=== PATIENT | male | born 1995 | race Caucasian/White ===

== ENCOUNTER 2016-06-17 20:00 | Emergency (ER) | payer OTHER ==
[~2016-06-17] VITALS: Ht 170.2 cm; Wt 70.0 kg
[2016-06-17 20:03] VITALS: TEMP 36.7; Ht 170.2 cm; Wt 70.0 kg
--- NOTE | 2016-06-17 20:42 | DIAGNOSTIC IMAGING REPORT ---
RIGHT TIBIA/FIBULA 2 VIEWS ROUTINE CLINICAL HISTORY: Right roach pain following injury. COMPARISON: None FINDINGS: No definite fracture of the right tibia or fibula is present. There is a vertical lucency through the proximal to mid shaft of the right tibia. This likely reflects a vascular channel. Lateral view demonstrates mild soft tissue swelling overlying the proximal to mid shaft of the right tibia. IMPRESSION: Vertical lucency within the proximal to mid shaft of the right tibia. This favors a vascular channel. A nondisplaced fracture could appear similar although is considered less likely. A CT scan or short-term radiographic follow-up could be performed if persistent pain. Electronically signed by: Major Lan M.D. 06/17/2016 8:40 PM Dictated Date/Time: 06/17/2016 8:35 PM
--- NOTE | 2016-06-17 21:16 | EMERGENCY ROOM VISIT NOTE ---
ED Visit Note First contact with patient: 20:09 CHIEF COMPLAINT: Leg pain HISTORY OF PRESENT ILLNESS: This 21-year-old male patient presents to the emergency department ambulatory after sustaining an injury to the right roach. The patient reports that he was playing soccer when he was kicked by a cleat directly in the roach. He states that there is an area of swelling where he was kicked. He is having difficulty walking due to the pain. He denies any other injuries. He states the leg feels slightly weak but denies any numbness. He rates his discomfort a 5/10. He has not taken any medication for the pain. No previous injuries to this leg. REVIEW OF SYSTEMS: A 6 system review of systems was completed with positives and pertinent negatives listed in the HPI. ALLERGIES: Penicillins MEDICATIONS: No chronic medications PMH: No significant past history. SOCIAL HISTORY: The patient is a [employer] student and lives with roommates. Nonsmoker, admits to occasional alcohol use. PHYSICAL EXAM: Vital Signs: Reviewed Nurse's notes, vital signs stable. GENERAL : This is a 21-year-old male, no acute distress, but appears in pain, well- developed, well-nourished. MENTAL STATUS: Alert, oriented to person place and time, and cooperative. MUSCULOSKELETAL: There is a hematoma over the distal one third of the right anterior roach. There is tenderness to palpation. No lacerations or abrasions. No tenderness to palpation of the proximal tibia/ fibula or ankle. Full range of motion of the knee and ankle. The foot and toes are warm and well-perfused. Dorsalis pedis pulse 2+. Sensation to pain and light touch is intact. Capillary refill less than 2 seconds. RADIOGRAPHIC FINDINGS: RIGHT TIBIA/FIBULA 2 VIEWS ROUTINE CLINICAL HISTORY: Right roach pain following injury. COMPARISON: None FINDINGS: No definite fracture of the right tibia or fibula is present. There is a vertical lucency through the proximal to mid shaft of the right tibia. This likely reflects a vascular channel. Lateral view demonstrates mild soft tissue swelling overlying the proximal to mid shaft of the right tibia. IMPRESSION: Vertical lucency within the proximal to mid shaft of the right tibia. This favors a vascular channel. A nondisplaced fracture could appear similar although is considered less likely. A CT scan or short-term radiographic follow-up could be performed if persistent pain. EMERGENCY DEPARTMENT COURSE: I examined the patient. X-rays of the right tib/ fib were reviewed by myself and read by radiology and reveal an abnormality of the proximal tibia which likely represents a vascular channel. The patient was reassessed and has no tenderness over the area in question, confirming that this is likely a vascular channel. The patient has a hematoma. He was reassured. Conservative measures were discussed. He was able to walk and will not require crutches. He will follow-up with [facility] services as needed. The patient was discharged home in good condition. DIAGNOSIS: Right leg hematoma Current/Historical Medications No Active Prescriptions or Reported Meds Allergies Coded Allergies: Penicillins (Verified Allergy, Unknown, Unknown, 06/17/16) Vital Signs Date Time Temp Pulse Resp B/P Pulse Ox O2 Delivery O2 Flow Rate FiO2 06/17/16 20:03 36.7 109 18 125/76 97 Room Air Departure Information Impression Primary Impression: Hematoma of right lower extremity Dispostion Home / Self-Care Condition GOOD Prescriptions No Active Prescriptions or Reported Meds Referrals No Doctor, Assigned (PCP) Patient Instructions [facility] Additional Instructions For pain control, you can use the following [id number] medicines (if >12 yo): - Regular strength (325mg/tab) Tylenol (acetaminophen) 2 tabs every 4-6 hours as needed. Do not exceed 12 tablets in a 24 hour period. Avoid taking more than 4 grams (4000 mg) of Tylenol per day. This includes any other sources of acetaminophen you may take on a regular basis. - Regular strength (200 mg/tab) Advil (ibuprofen) 1-2 tabs every 4-6 hours as needed. Do not exceed a dose of 3200 mg per day. Apply ice to the leg frequently. Elevate the leg for pain. Follow-up with [facility] services or orthopedics as needed for persistent pain. Problem Qualifiers Primary Impression: Hematoma of right lower extremity Encounter type: initial encounter Qualified Codes: S80.11XA - Contusion of right lower leg, initial encounter
[2016-06-17 21:29] VITALS: BP 119/71; PULSE 87; O2SAT 98
== END 2016-06-17 21:31 | disposition home or self-care (01) ==
LOC: C.EDB 20:01 → C.EDD 21:31
DX: S80.11XA Contusion of right lower leg, initial encounter (principal); W51.XXXA Accidental striking against or bumped into by another person, initial encounter; Y93.66 Activity, soccer